=== PATIENT | female | born 1940 | race Caucasian/White ===

== ENCOUNTER 2022-02-01 07:12 | Outpatient (CLI) | payer OTHER | END 2022-02-01 07:25 | disposition home or self-care (01) | LOC: RX STUDY 07:12 | DX: R13.14 Dysphagia, pharyngoesophageal phase (principal); R07.9 Chest pain, unspecified; K30 Functional dyspepsia ==

== ENCOUNTER 2022-09-06 12:39 | Outpatient (CLI) | payer OTHER | END 2022-09-06 12:41 | disposition home or self-care (01) | LOC: NUCLEAR 12:39 | PROVIDERS: ATTEND Specialist/Technologist, Other Nephrology | DX: N18.30 Chronic kidney disease, stage 3 unspecified (principal); N13.9 Obstructive and reflux uropathy, unspecified | CPT/HCPCS: 78708; A9539; J1940 ==

== ENCOUNTER → 2023-10-30 | Outpatient (CLI) | payer OTHER | END | disposition home or self-care (01) | LOC: NUCLEAR 10-24 09:00 | DX: I87.2 Venous insufficiency (chronic) (peripheral) (principal); I10 Essential (primary) hypertension; E11.65 Type 2 diabetes mellitus with hyperglycemia; G30.9 Alzheimer's disease, unspecified; E78.2 Mixed hyperlipidemia; E55.9 Vitamin D deficiency, unspecified; M81.0 Age-related osteoporosis without current pathological fracture ==

== ENCOUNTER 2024-05-09 10:13 | Outpatient (CLI) | payer OTHER | END 2024-05-09 10:15 | disposition home or self-care (01) | LOC: NUCLEAR 10:13 | PROVIDERS: ATTEND Psychiatry & Neurology Pain Medicine | DX: I65.23 Occlusion and stenosis of bilateral carotid arteries (principal); I70.8 Atherosclerosis of other arteries; I67.9 Cerebrovascular disease, unspecified; I25.3 Aneurysm of heart ==